=== PATIENT | male | born 1960 | race Caucasian/White ===

== ENCOUNTER 2022-11-28 18:53 | Inpatient (IN) | payer BC, OTHER, SELFPAY ==
[2022-11-28 19:31] LABS: Absolute Lymphocytes (CBC) 0.9 K/uL (0.7-4.9); Hematocrit 47.4 % (39.6-49.0); Lymphocytes % 6.5 % (15.3-44.8); MCV 95.7 fL (80-100); MPV 6.5 fL (7.6-11.3); RBC Red Blood Cell Count 4.95 M/uL (4.33-5.43)
[2022-11-28 19:50] LABS: Specific Gravity 1.014 (1.005-1.030); Urine Bilirubin NEGATIVE (Negative); Urine Blood Negative (Negative); Urine Clarity Clear (Clear); Urine Color Light-Yellow (Yellow); Urine Glucose NEGATIVE (Negative); Urine Protein NEGATIVE (Negative); Urine Urobilinogen Normal (Normal)
[2022-11-28 19:59] LABS: Albumin 3.5 g/dL (3.4-5.0); Bilirubin Direct 0.1 mg/dL (0-0.2); Bilirubin Indirect, Calculated 0.4 mg/dL (0.2-0.8); Bilirubin Total 0.5 mg/dL (0.2-1.0); Magnesium 1.8 mg/dL (1.6-2.4); Potassium 3.7 mEq/L (3.5-5.1); Protein, Total 8.2 g/dL (6.4-8.2); Thyroid Stimulating Hormone 2.99 uIU/mL (0.358-3.740); Troponin High Sensitivity 6.7 pg/mL (<58.9)
--- NOTE | 2022-11-28 21:03 | RAD REPORT ---
EXAM DESCRIPTION: CT - Chest For Pe Angio - 11/28/2022 8:49 pm CLINICAL HISTORY: Chest pain. CHEST PAIN COMPARISON: No comparisons TECHNIQUE: CT angiogram of the pulmonary arteries was performed with MIP. All CT scans are performed using dose optimization technique as appropriate and may include automated exposure control or mA/KV adjustment according to patient size. FINDINGS: No evidence of pulmonary thromboembolism. No acute aortic finding demonstrated. Moderate diffuse COPD. No significant pericardial or pleural fluid. No concerning bony finding. IMPRESSION: No evidence of pulmonary thromboembolism. Moderate diffuse COPD.
--- NOTE | 2022-11-28 21:15 | ER ---
Nurse's Notes [facility] Name: Jed Corona Age: 61 yrs Sex: Male : 1960 Arrival Date: 11/28/2022 Time: 18:53 Bed 4 Private MD: Diagnosis: COPD/ Chronic obstructive pulmonary disease, unspecified;Hypoxemia Presentation: 11/28 18:54 Chief complaint: EMS states: "toned out for breathing difficulty that started today. Pt mb9 states he was diagnosed with an upper respiratory virus on Friday but isn't feeling better. Pt sinus tach at 126 and 90% on RA, placed pt on 3 l/min and O2 saturation now at 94%. Gave Albuterol treatment in route and 20 g to left AC.". Coronavirus screen: Vaccine status: Patient reports being unvaccinated. Ebola Screen: No symptoms or risks identified at this time. Initial Sepsis Screen: Does the patient meet any 2 criteria? HR > 90 bpm. Does the patient have a suspected source of infection? No. Patient's initial sepsis screen is negative. Risk Assessment: Do you want to hurt yourself or someone else? Patient reports no desire to harm self or others. Onset of symptoms was November 28, 2022. 18:54 Method Of Arrival: EMS: [facility] mb9 18:54 Acuity: KAMLESH 3 mb9 Triage Assessment: 18:58 General: Appears uncomfortable, Behavior is cooperative. Pain: Denies pain. Neuro: mb9 Puryd Agitation-Sedation Scale (RASS): 0 - Alert and Calm Level of Consciousness is awake, alert, obeys commands, Oriented to person, place, time, situation, Appropriate for age. Cardiovascular: Heart tones S1 S2 present Patient's skin is warm and dry. Rhythm is sinus tachycardia. Respiratory: Airway is patent Respiratory effort is even, unlabored, Respiratory pattern is regular, symmetrical, Breath sounds with wheezes in left posterior lower lobe, right posterior middle lobe and right posterior lower lobe. Respiratory: Reports shortness of breath at rest on exertion cough that is non-productive. GI: No signs and/or symptoms were reported involving the gastrointestinal system. Derm: Skin is pink, warm \\T\\ dry. Musculoskeletal: Range of motion: intact in all extremities. Historical: - Allergies: 18:54 Novocain; ph - Home Meds: 18:54 losartan-hydrochlorothiazide 100-25 mg oral tablet daily [Active]; omeprazole 40 mg ph Oral capsule,delayed release (e.c.) daily [Active]; amlodipine 10 mg tablet daily [Active]; 18:58 benzonatate 200 mg oral capsule 3 times per day [Active]; ph - PMHx: 18:54 COPD; CHF; Hypertensive disorder; ph - Immunization history:: Adult Immunizations up to date. - Social history:: Smoking status: Patient reports the use of cigarette tobacco products, smokes two packs cigarettes per day. - Family history:: not pertinent. Screenin:57 [facility] ED Fall Risk Assessment (Adult) History of falling in the last 3 months, ph including since admission No falls in past 3 months (0 pts) Confusion or Disorientation No (0 pts) Intoxicated or Sedated No (0 pts) Impaired Gait No (0 pts) Mobility Assist Device Used No (0 pt) Altered Elimination No (0 pt) Score/Fall Risk Level 0 - 2 = Low Risk Oriented to surroundings, Maintained a safe environment, Hourly rounding (assess needs \\T\\ fall precautionary measures) done. Abuse screen: Denies threats or abuse. Denies injuries from another. Nutritional screening: No deficits noted. Tuberculosis screening: No symptoms or risk factors identified. Assessment: 19:21 Reassessment: see triage assessment. mb9 20:07 Reassessment: Patient and/or family updated on plan of care and expected duration. Pain mb9 level reassessed. Patient is alert, oriented x 3, equal unlabored respirations, skin warm/dry/pink. Patient states feeling better. Patient states symptoms have improved. 22:05 Reassessment: attempted to call report to admitting nurse. mb9 Vital Signs: 18:54 BP 150 / 99; Pulse 120; Resp 10; Temp 97.7; Pulse Ox 96% on 3 lpm NC; Weight 72.57 kg; mb9 Height 5 ft. 6 in. ; 19:21 BP 139 / 85; Pulse 112; Resp 18; Pulse Ox 98% on 3 lpm NC; mb9 20:07 BP 130 / 66; Pulse 109; Resp 18; Pulse Ox 98% on R/A; mb9 18:54 Body Mass Index 25.82 (72.57 kg, 167.64 cm) mb9 ED Course: 18:53 Patient arrived in ED. rt 18:53 Jamari Lowe MD is Attending Physician. rt 18:54 Samantha Raygoza, RN is Primary Nurse. mb9 18:54 Arm band placed on. mb9 18:58 Triage completed. mb9 18:59 Placed in gown. Bed in low position. Call light in reach. Side rails up X 1. Client mb9 placed on continuous cardiac and pulse oximetry monitoring. NIBP monitoring applied. hand reamer on. 18:59 No provider procedures requiring assistance completed. Maintain EMS IV. Dressing mb9 intact. Good blood return noted. Site clean \\T\\ dry. Gauge \\T\\ site: 20 g left AC. 19:19 EKG done, by ED staff, reviewed by Jamari Lowe MD. Inserted saline lock: 20 gauge mb9 in right antecubital area, using aseptic technique. 19:19 Blood Culture Adult (2) Sent. mb9 19:19 CMP Sent. mb9 19:19 Protime (+inr) Sent. mb9 19:19 Ptt, Activated Sent. mb9 19:19 Troponin HS Sent. mb9 19:19 Basic Metabolic Panel Sent. mb9 19:19 CBC with Diff Sent. mb9 19:19 LFT's Sent. mb9 19:19 Magnesium Sent. mb9 19:20 NT PRO-BNP Sent. mb9 19:20 TSH Sent. mb9 20:51 CT Chest For PE Angio In Process Unspecified. EDMS 21:13 Daisy Crane MD is Hospitalizing Provider. rt 22:10 Patient admitted, IV remains in place. mb9 Administered Medications: No medications were administered Medication: 18:59 VIS not applicable for this client. mb9 Outcome: 21:14 Decision to Hospitalize by Provider. rt 22:09 Admitted to Tele room 412, with oxygen, with chart, Report called to SAMEER Roman mbRadha 22:09 Condition: stable 22:09 Instructed on the need for admit. 22:31 Patient left the ED. mb9 Signatures: Dispatcher [employer] EDMS Marley Doyle RN RN Samantha Coreas, RN RN Jamari Laura MD MD rt Corrections: (The following items were deleted from the chart) 18:59 18:54 Pulse 120bpm; Resp 10bpm; Pulse Ox 96% 3 lpm Nasal Cannula; Temp 97.7F; 72.57 kg; mb9 Height 5 ft. 6 in.; BMI: 25.8; mb9
--- NOTE | 2022-11-28 21:15 | EDPHYS ---
Physician Documentation [facility] Name: Jed Corona Age: 61 yrs Sex: Male : 1960 Arrival Date: 11/28/2022 Time: 18:53 Bed 4 Private MD: ED Physician Jamari Lowe HPI: 11/28 19:34 This 61 yrs old Unknown Male presents to ER via EMS with complaints of Shortness of rt breath. 19:34 Patient with history of COPD, CHF presents to the ED with about 4 days of cough, rt congestion. He states that he had worsening breathing today. He states that the cough is productive. Patient's oxygen saturation about 90% by EMS, was given 1 nebulizer treatment. Denies chest pain. Denies other acute complaints at this time. Symptoms are moderate severity, no other aggravating or elevating factors.. Historical: - Allergies: 18:54 Novocain; ph - Home Meds: 18:54 losartan-hydrochlorothiazide 100-25 mg oral tablet daily [Active]; omeprazole 40 mg ph Oral capsule,delayed release (e.c.) daily [Active]; amlodipine 10 mg tablet daily [Active]; 18:58 benzonatate 200 mg oral capsule 3 times per day [Active]; ph - PMHx: 18:54 COPD; CHF; Hypertensive disorder; ph - Immunization history:: Adult Immunizations up to date. - Social history:: Smoking status: Patient reports the use of cigarette tobacco products, smokes two packs cigarettes per day. - Family history:: not pertinent. ROS: 19:34 Constitutional: Negative for fever, chills, and weight loss, Cardiovascular: Negative rt for chest pain, palpitations, and edema, Abdomen/GI: Negative for abdominal pain, nausea, vomiting, diarrhea, and constipation, MS/Extremity: Negative for injury and deformity, Skin: Negative for injury, rash, and discoloration, Neuro: Negative for headache, weakness, numbness, tingling, and seizure, Psych: Negative for depression, anxiety, suicide ideation, homicidal ideation, and hallucinations. 19:34 Respiratory: Positive for cough, shortness of breath. Exam: 19:34 Constitutional: This is a well developed, well nourished patient who is awake, alert, rt and in no acute distress. Head/Face: Normocephalic, atraumatic. Chest/axilla: Normal chest wall appearance and motion. Nontender with no deformity. No lesions are appreciated. Cardiovascular: Regular rate and rhythm with a normal S1 and S2. No gallops, murmurs, or rubs. Normal PMI, no JVD. No pulse deficits. Abdomen/GI: Soft, non-tender, with normal bowel sounds. No distension or tympany. No guarding or rebound. No evidence of tenderness throughout. Skin: Warm, dry with normal turgor. Normal color with no rashes, no lesions, and no evidence of cellulitis. MS/ Extremity: Pulses equal, no cyanosis. Neurovascular intact. Full, normal range of motion. Neuro: Awake and alert, GCS 15, oriented to person, place, time, and situation. Cranial nerves II-XII grossly intact. Motor strength 5/5 in all extremities. Sensory grossly intact. Cerebellar exam normal. Normal gait. Psych: Awake, alert, with orientation to person, place and time. Behavior, mood, and affect are within normal limits. 19:34 ECG was reviewed by the Attending Physician. 19:34 Respiratory: Coarse breath sounds with wheezes heard in all lung martinez, no respiratory distress. Vital Signs: 18:54 BP 150 / 99; Pulse 120; Resp 10; Temp 97.7; Pulse Ox 96% on 3 lpm NC; Weight 72.57 kg; mb9 Height 5 ft. 6 in. ; 19:21 BP 139 / 85; Pulse 112; Resp 18; Pulse Ox 98% on 3 lpm NC; mb9 20:07 BP 130 / 66; Pulse 109; Resp 18; Pulse Ox 98% on R/A; mb9 18:54 Body Mass Index 25.82 (72.57 kg, 167.64 cm) mb9 MDM: 18:53 Patient medically screened. rt 21:14 Differential diagnosis: Pneumonia, pneumothorax, COPD, CHF, pulmonary embolism. Data rt reviewed: vital signs, nurses notes, lab test result(s), EKG, radiologic studies. Consideration of Admission/Observation Patient was admitted/placed on observation. Management of patient was discussed with the following: Hospitalist: Agrees to admit. I considered the following discharge prescriptions or medication management in the emergency department Medications were administered in the Emergency Department. See MAR. Independent interpretation of the following test(s) in the Emergency Department CT Scan: My interpretation is No consolidation seen on interpretation of the CT scan images. Test considered but Not performed: X-ray: Patient requires CT angiogram to rule out PE, x-ray not likely to give more useful information.. Care significantly affected by the following chronic conditions: Congestive Heart Failure, Chronic Obstructive Pulmonary Disease. Counseling: I had a detailed discussion with the patient and/or guardian regarding: the historical points, exam findings, and any diagnostic results supporting the discharge/admit diagnosis, lab results, radiology results, the need for further work-up and treatment in the hospital. Response to treatment: the patient's symptoms have markedly improved after treatment. 11/28 19:10 Order name: Basic Metabolic Panel rt 11/28 19:10 Order name: CBC with Diff; Complete Time: 20:33 rt 11/28 19:10 Order name: LFT's; Complete Time: 20:33 rt 11/28 19:10 Order name: Magnesium; Complete Time: 20:33 rt 11/28 19:10 Order name: NT PRO-BNP; Complete Time: 20:33 rt 11/28 19:10 Order name: Troponin HS; Complete Time: 20:33 rt 11/28 19:10 Order name: Blood Culture Adult (2) rt 11/28 19:10 Order name: CMP; Complete Time: 20:33 rt 11/28 19:10 Order name: Lactate w/ 2H reflex if indic.; Complete Time: 20:33 rt 11/28 19:10 Order name: Protime (+inr) rt 11/28 19:10 Order name: Ptt, Activated rt 11/28 19:10 Order name: Urinalysis w/ reflexes; Complete Time: 20:33 rt 11/28 19:10 Order name: TSH; Complete Time: 20:33 rt 11/28 21:30 Order name: Flu rv1 11/28 21:33 Order name: Urinalysis w/ reflexes EDMS 11/28 21:33 Order name: Basic Metabolic Panel EDMS 11/28 21:33 Order name: Basic Metabolic Panel EDMS 11/28 21:33 Order name: Basic Metabolic Panel EDMS 11/28 21:33 Order name: Basic Metabolic Panel EDMS 11/28 21:33 Order name: CBC with Automated Diff EDMS 11/28 21:33 Order name: CBC with Automated Diff EDMS 11/28 21:33 Order name: CBC with Automated Diff EDMS 11/28 21:33 Order name: CBC with Automated Diff EDMS 11/28 21:33 Order name: Magnesium EDMS 11/28 21:33 Order name: Magnesium EDMS 11/28 21:33 Order name: Magnesium EDMS 11/28 21:33 Order name: Magnesium EDMS 11/28 21:33 Order name: Phosphorus EDMS 11/28 21:33 Order name: Phosphorus EDMS 11/28 21:33 Order name: Phosphorus EDMS 11/28 21:33 Order name: Phosphorus EDMS 11/28 19:10 Order name: CT Chest For PE Angio; Complete Time: 21:08 rt 11/28 19:10 Order name: EKG; Complete Time: 19:11 rt 11/28 21:33 Order name: CONS Physician Consult EDMS 11/28 21:33 Order name: Heart Healthy EDMS 11/28 19:10 Order name: Cardiac monitoring; Complete Time: 19:19 rt 11/28 19:10 Order name: EKG - Nurse/Tech; Complete Time: 19:19 rt 11/28 19:10 Order name: IV Saline Lock; Complete Time: 19:19 rt 11/28 19:10 Order name: Labs collected and sent; Complete Time: 19:19 rt 11/28 19:10 Order name: O2 Per Protocol; Complete Time: 19:19 rt 11/28 19:10 Order name: O2 Sat Monitoring; Complete Time: 19:19 rt 11/28 19:10 Order name: Accucheck; Complete Time: 19:19 rt 11/28 19:10 Order name: IV Saline Lock - Large Bore; Complete Time: 19:19 rt 11/28 19:10 Order name: Vital Signs; Complete Time: 19:19 rt EC:34 Rate is 117 beats/min. Rhythm is regular, Sinus tachycardia with Unifocal PVCs. QRS rt Mission is Normal. OK interval is normal. QRS interval is normal. QT interval is normal. No Q waves. T waves are Normal. No ST changes noted. Administered Medications: No medications were administered Disposition Summary: 11/28/22 21:14 Hospitalization Ordered Hospitalization Status: Observation rt Provider: Daisy Crane rt Location: Telemetry/MedSurg (observation) rt Condition: Stable rt Problem: an acute exacerbation rt Symptoms: have improved rt Bed/Room Type: Standard rt Room Assignment: 412(11/28/22 21:54) mw Diagnosis - COPD/ Chronic obstructive pulmonary disease, unspecified rt - Hypoxemia rt Forms: - Medication Reconciliation Form rt - SBAR form rt Signatures: Dispatcher [employer] EDDestinee Lee RN RN Marley Doyle RN RN Jamari Lowe MD MD rt Corrections: (The following items were deleted from the chart) 21:35 21:30 SARS-COV-2 RT PCR+[id number].[id number] ordered. EDMS EDMS 21:54 21:14 rt mw
--- NOTE | 2022-11-28 21:19 | P.HP ---
Certification for Inpatient Patient admitted to: Inpatient With expected LOS: <2 Midnights Patient will require the following post-hospital care: None Practitioner: I am a practitioner with admitting privileges, knowledge of patient current condition, hospital course, and medical plan of care. Services: Services provided to patient in accordance with Admission requirements found in Title 42 Section 412.3 of the Code of Federal Regulations Patient History Date of Service: 11/28/22 Reason for admission: shortness of breath History of Present Illness: 61-year-old male with a past medical history of hypertension, congestive heart failure, COPD, presents to the emergency room with productive cough, worsening shortness of breath today. He reports symptoms started 4 days ago, being treated with a Z-Dung. And nebulizers at home are not effective at this time. On arrival to the emergency room oxygen was 85% on room air, he was placed on nasal cannula at 4 L sats improved to 94%. CT of the chest is negative for PE and pneumonia. ER evaluation Leukocytosis 13.90, mild left shift at 83.5, mild hyponatremia 135, CO2 elevated at 34, blood sugar 121, BNP elevated at 189, UA clear CTA of the chest No evidence of pulmonary thromboembolism. Moderate diffuse COPD. Allergies procaine [From Novocain] Allergy (Verified 11/28/22 21:53) Hives Review of Systems 10-point ROS is otherwise unremarkable Physical Examination - Physical Exam General: Alert, Oriented x3, Mild distress HEENT: Atraumatic, Normocephalic, PERRLA Neck: Supple, 2+ carotid pulse no bruit Respiratory: Diminished Cardiovascular: No edema, Normal pulses, Irregular heart rate/rhythm Capillary refill: <2 Seconds Gastrointestinal: Normal bowel sounds, Non-distended Musculoskeletal: No clubbing, No swelling Integumentary: No rashes, No breakdown Neurological: Normal speech, Normal strength at 5/5 x4 extr, Cranial nerves 3-12 intact - Studies Laboratory Data (last 24 hrs) 11/28/22 19:14: WBC 13.90 H, Hgb 15.7, Hct 47.4, Plt Count 326 11/28/22 19:14: Sodium 135 L, Potassium 3.7, BUN 18, Creatinine 0.74, Glucose 121 H, Magnesium 1.8, Total Bilirubin 0.5, AST 21, ALT 30, Alkaline Phosphatase 82 Assessment and Plan - Plan Assessment plan Acute hypoxic respiratory failure secondary to COPD exacerbation Leukocytosis 13.90, mild left shift at 83.5, mild could be reactive to steroids Hypertensive urgency History of acute on chronic heart failure Tobacco use Alcohol use Assessment plan Acute hypoxic respiratory failure secondary to COPD exacerbation Patient refused albuterol, dexamethasone daily, doxycycline daily, budesonide, ipratropium O2 2 L keep sats greater than 92% Leukocytosis 13.90, mild left shift at 83.5, mild CTA of the chest No evidence of pulmonary thromboembolism. Hypertensive urgency As needed antihypertensives, resume appropriate home meds History of acute on chronic heart failure Resume appropriate home medications, diuretics, trend BMP BNP elevated at 189 Tobacco use Educated on tobacco cessation Alcohol use CIWA protocol, as needed Ativan DVT Lovenox Full code Diet cardiac - Advance Directives Does patient have a Living Will: No Does patient have a Durable POA for Healthcare: No
[2022-11-28] MEDS ORDERED: ONDANSETRON 4 MG/2 ML VIAL IV PRN (21:31)
[2022-11-28] MEDS ORDERED: ALBUTEROL 2.5 MG/3 ML NEB SOL NEB PRN (21:31)
[2022-11-28] MEDS ORDERED: ACETAMINOPHEN 500 MG TAB PO PRN (21:31)
[2022-11-28] MEDS ORDERED: GLUCAGON 1 MG/VIAL IM PRN (21:33)
[2022-11-28] MEDS ORDERED: D50W 25 GM/50 ML SYRINGE IV PRN (21:33)
[2022-11-28] MEDS ORDERED: TRAMADOL HCL 50 MG TAB PO PRN ×2 (21:53→22:34)
[2022-11-28] MEDS ORDERED: LORAZEPAM 0.5 MG TABLET PO ONE (21:53)
[2022-11-28] MEDS ORDERED: LORAZEPAM 0.5 MG TABLET ONE (22:05)
[2022-11-28] MEDS ORDERED: TRAMADOL HCL 50 MG TAB ONE (22:06)
[2022-11-28] MEDS ORDERED: LORazepam 2 MG/ML VIAL IV PRN ×2 (22:31→23:22)
[2022-11-28] MEDS ORDERED: FUROSEMIDE 40 MG/4 ML VIAL IV ONE (22:31)
[2022-11-28] MEDS ORDERED: FLUMAZENIL 0.1 MG/ML (5 mL VIAL) IV PRN (22:31)
[2022-11-28] MEDS ORDERED: LORazepam 2 MG/ML VIAL IV SCH (23:00)
[2022-11-28 23:04] VITALS: BMI 25.7
[2022-11-28 23:41] LABS: Protime INR 0.86
[2022-11-29] MEDS ORDERED: METHYLPREDNISOLONE 125 MG INJ IV SCH
[2022-11-29] MEDS: IPRATROPIUM BROM 0.5MG/2.5ML NEB SCH ×3 (00:15→13:20)
[2022-11-29 05:09] LABS: Absolute Lymphocytes (CBC) 1.2 K/uL (0.7-4.9); Hematocrit 46.9 % (39.6-49.0); Lymphocytes % 6.9 % (15.3-44.8); MCV 96.8 fL (80-100); MPV 6.5 fL (7.6-11.3); RBC Red Blood Cell Count 4.84 M/uL (4.33-5.43)
[2022-11-29 05:23] LABS: Magnesium 1.9 mg/dL (1.6-2.4); Phosphorus 5.4 mg/dL (2.5-4.9); Potassium 3.7 mEq/L (3.5-5.1)
[2022-11-29] MEDS: INSULIN -REGULAR HUMAN 50 UNIT/0.5 ML ML SQ SCH ×2 (07:30→11:30)
[2022-11-29] MEDS ORDERED: BUDESONIDE 0.5 MG/2 ML NEB NEB SCH (08:00)
[2022-11-29] MEDS ORDERED: DOXYCYCLINE 100 MG in NA CHLORIDE 0.9% 100 ML IVPB SCH (09:00)
[2022-11-29] MEDS ORDERED: NICOTINE 21 MG/PAT TD SCH (09:00)
[2022-11-29] MEDS ORDERED: ENOXAPARIN 40 MG/0.4 ML SQ SCH (09:00)
[2022-11-29] MEDS ORDERED: POTASSIUM CL SA 10 MEQ TAB PO ONE (09:00)
[2022-11-29] MEDS ORDERED: dexAMETHasone 4 MG/ML VIAL IV SCH (09:00)
[2022-11-29] MEDS ORDERED: DULERA 200/5 (MOMETASONE/FORMOTEROL) INHALER IH SCH (11:28)
--- NOTE | 2022-11-29 11:38 | P.CNS ---
Date of Consult: 11/29/22 Reason for Consult: OPD exacerbation Chief Complaint: shortness of breath History of Present Illness: Patient is 61 years of age with a history of tobacco alcohol abuse has been sick for about 2 weeks got worse last Friday becoming more short of breath chest congestion productive cough treated with steroids and Z-Dung with no relief as an outpatient. In the hospital he is looking little bit better still congested Allergies procaine [From Novocain] Allergy (Verified 11/28/22 21:53) Hives Home Medications: Amlodipine Besylate [Norvasc] 1 tab PO DAILY 11/29/22 Benzonatate 1 cap PO TID PRN 11/29/22 Losartan/Hydrochlorothiazide [Losartan-Hctz 100-25 mg Tab] 1 tab PO DAILY 11/29/22 Omeprazole [Prilosec] 1 cap PO DAILY 11/29/22 - Past Medical/Surgical History -: COPD -: CHF -: HTN -: hernia repair -: tonsillectomy - Social History Smoking Status: Current every day smoker CD- Drugs: No Place of Residence: Home Review of Systems General: Weakness Respiratory: Cough, Shortness of Breath Physical Examination Temp Pulse Resp BP Pulse Ox 97.1 F 99 H 16 129/72 96 11/29/22 08:00 11/29/22 08:00 11/29/22 08:00 11/29/22 08:00 11/29/22 08:00 General: Alert, In no apparent distress, Oriented x3 Respiratory: Clear to auscultation bilaterally, Diminished Cardiovascular: No edema, Normal pulses, Regular rate/rhythm Gastrointestinal: Normal bowel sounds, Soft and benign, Non-distended Laboratory Data (last 24 hrs) 11/28/22 19:14: WBC 13.90 H, Hgb 15.7, Hct 47.4, Plt Count 326 11/28/22 19:14: Sodium 135 L, Potassium 3.7, BUN 18, Creatinine 0.74, Glucose 121 H, Magnesium 1.8, Total Bilirubin 0.5, AST 21, ALT 30, Alkaline Phosphatase 82 - Problems (1) COPD exacerbation Current Visit: Yes Status: Acute Plan: Patient is 61 years of age admitted with COPD exacerbation heavy smoker history of alcohol abuse is to p.o. prednisone add p.o. levofloxacin check for home O2 counseled on smoking cessation
[2022-11-29] MEDS ORDERED: levoFLOXacin 750 MG TAB PO SCH (11:45)
[2022-11-29] MEDS ORDERED: METHYLPREDNISOLONE 40 MG INJ IV SCH (12:00)
--- NOTE | 2022-11-29 14:16 | RAD REPORT ---
EXAM DESCRIPTION: RAD - Chest Single View - 11/29/2022 2:04 pm CLINICAL HISTORY: COPD COMPARISON: No comparisons FINDINGS: Lines: None. Lungs: No evidence of edema or pneumonia. Pleural: No significant pleural effusions or pneumothorax. Cardiac: The heart size is within normal limits. Mediastinum: Within normal limits. Bones: No acute fractures. Other: None IMPRESSION: No acute cardiopulmonary disease.
--- NOTE | 2022-11-29 16:19 | P.DS ---
Admission Date: 11/28/22 Discharge Date: 11/29/22 Disposition: ROUTINE DISCHARGE Discharge Condition: FAIR Reason for Admission: shortness of breath - Problems (1) Acute respiratory failure with hypoxia Current Visit: Yes Status: Acute (2) Chronic alcohol abuse Current Visit: Yes Status: Acute (3) COPD exacerbation Current Visit: Yes Status: Acute Brief History of Present Illness: 61-year-old male with a past medical history of hypertension, congestive heart failure, COPD, presents to the emergency room with productive cough, worsening shortness of breath today. He reports symptoms started 4 days ago, treated with a Z-P an inhalers at home without much response. On arrival to the emergency room oxygen was 85% on room air, he was placed on nasal cannula at 4 L sats improved to 94%. CT of the chest was negative for PE and pneumonia. ER evaluation Leukocytosis 13.90, mild left shift at 83.5, mild hyponatremia 135, CO2 elevated at 34, blood sugar 121, BNP elevated at 189, UA clear CTA of the chest No evidence of pulmonary thromboembolism. Moderate diffuse COPD. Patient admitted for further management. Hospital Course: Patient was admitted to the medical floor and treated with scheduled bronchodilators, IV steroid and antibiotics. Patient states that he suspects he has an allergy to albuterol. He has tolerated mometasone/formoterol. He was seen in consultation by pulmonary Dr. Mota. Patient was weaned from oxygen to room air which he tolerated even with ambulation. He did not qualify for home oxygen. Patient is deemed stable for discharge. He is discharged with short course prednisone, oral Levaquin and Trelegy. He will follow-up with Dr. Mota as outpatient for further evaluation and treatment. Vital Signs/Physical Exam: Temp Pulse Resp BP Pulse Ox 97.1 F 99 H 16 129/72 96 11/29/22 08:00 11/29/22 08:00 11/29/22 08:00 11/29/22 08:00 11/29/22 08:00 General: Alert, In no apparent distress, Oriented x3 HEENT: Mucous membr. moist/pink Neck: JVD not distended Respiratory: Clear to auscultation bilaterally, Normal air movement Cardiovascular: No edema, Regular rate/rhythm, Normal S1 S2 Gastrointestinal: Normal bowel sounds, Soft and benign, Non-distended Musculoskeletal: No swelling Integumentary: No rashes, No cyanosis Neurological: Normal strength at 5/5 x4 extr Laboratory Data at Discharge: WBC 17.10 thou/uL (4.3-10.9) H 11/29/22 04:40 Hgb 15.6 g/dL (13.6-17.9) 11/29/22 04:40 Hct 46.9 % (39.6-49.0) 11/29/22 04:40 Plt Count 345 thou/uL (152-406) 11/29/22 04:40 PT 10.3 SECONDS (9.2-12.8) 11/28/22 22:52 INR 0.86 11/28/22 22:52 APTT 26.4 SECONDS (21.7-34.4) 11/28/22 22:52 Sodium 135 mEq/L (136-145) L 11/29/22 04:40 Potassium 3.7 mEq/L (3.5-5.1) 11/29/22 04:40 BUN 14 mg/dL (7-18) 11/29/22 04:40 Creatinine 0.67 mg/dL (0.70-1.30) L 11/29/22 04:40 Glucose 122 mg/dL (74-106) H 11/29/22 04:40 Phosphorus 5.4 mg/dL (2.5-4.9) H 11/29/22 04:40 Magnesium 1.9 mg/dL (1.6-2.4) 11/29/22 04:40 Total Bilirubin 0.5 mg/dL (0.2-1.0) 11/28/22 19:14 AST 21 U/L (15-37) 11/28/22 19:14 ALT 30 U/L (16-61) 11/28/22 19:14 Alkaline Phosphatase 82 U/L (45-117) 11/28/22 19:14 Home Medications: Amlodipine Besylate [Norvasc] 1 tab PO DAILY 11/29/22 Benzonatate 1 cap PO TID PRN 11/29/22 Fluticasone/Umeclidin/Vilanter [Trelegy Ellipta 100-62.5-25] 1 each IH DAILY #30 unit 11/29/22 Ipratropium Neb [Atrovent*] 0.5 mg IH QID PRN #120 unit 11/29/22 Losartan/Hydrochlorothiazide [Losartan-Hctz 100-25 mg Tab] 1 tab PO DAILY 11/29/22 Nebulizer 1 each MC QID #1 ea 11/29/22 Omeprazole [Prilosec] 1 cap PO DAILY 11/29/22 levoFLOXacin [Levaquin*] 750 mg PO DAILY #5 tab 11/29/22 predniSONE [Deltasone] 20 mg PO BID #10 tab 11/29/22 New Medications: Ipratropium Neb [Atrovent*] 0.5 mg IH QID PRN #120 unit PRN Reason: Shortness Of Breath levoFLOXacin [Levaquin*] 750 mg PO DAILY #5 tab Nebulizer 1 each MC QID #1 ea predniSONE [Deltasone] 20 mg PO BID #10 tab Fluticasone/Umeclidin/Vilanter [Trelegy Ellipta 100-62.5-25] 1 each IH DAILY #30 unit Diet: AHA Activity: Ad chavez Followup: Roberto Carlos Mota MD [ACTIVE - CAN ADMIT] - 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
[2022-11-29 16:26] VITALS: BP 123/61; TEMP 97.5
[2022-11-29 18:06] VITALS: O2SAT 97
[2022-11-30] MEDS ORDERED: AMLODIPINE 10 MG TAB PO SCH (09:00)
[2022-11-30] MEDS ORDERED: LOSARTAN/HCTZ 50-12.5 PO SCH (09:00)
[2022-11-30] MEDS ORDERED: PANTOPRAZOLE 40MG TABLET PO SCH (09:00)
[2022-11-30] MEDS ORDERED: HOME MED 1 EA UNK (Omeprazole [Prilosec] 40 MG Capsule.Dr) PO SCH (09:00)
[2022-11-30] MEDS ORDERED: HOME MED 1 EA UNK (Losartan/Hydrochlorothiazide [Losartan-Hctz 100-25 Mg Tab] 1 EACH Table PO SCH (09:00)
[2022-11-30] MEDS ORDERED: LORazepam 2 MG/ML VIAL IV SCH (23:00)
--- NOTE | 2022-12-02 11:55 | EKG ---
Test Date: 2022-11-28 Test Time: 18:51:41 [employer] Wildlife Agent: ANDRAE MEASUREMENT RESULTS: Intervals: Rate: 117 MN: 136 QRSD: 82 QT: 324 QTc: 451 Coy: P: 80 MN: 136 QRS: 92 T: 61 INTERPRETIVE STATEMENTS: Sinus tachycardia with frequent premature ventricular complexes Right atrial enlargement Borderline ECG No previous ECG available for comparison Electronically Signed On 12-02-22 11:48:14 CDT by Keenan Watson
== END 2022-11-29 17:48 | disposition home or self-care (01) | DRG 190 ==
LOC: ER 18:53 → 4TH 22:12
PROVIDERS: ADMIT Internal Medicine; ATTEND Internal Medicine
DX: J44.1 Chronic obstructive pulmonary disease with (acute) exacerbation (principal); J96.01 Acute respiratory failure with hypoxia; E87.1 Hypo-osmolality and hyponatremia; I16.0 Hypertensive urgency; I11.0 Hypertensive heart disease with heart failure; I50.9 Heart failure, unspecified; F10.10 Alcohol abuse, uncomplicated; F17.210 Nicotine dependence, cigarettes, uncomplicated; Z71.6 Tobacco abuse counseling; Z88.8 Allergy status to other drugs, medicaments and biological substances; Z79.52 Long term (current) use of systemic steroids; Z79.899 Other long term (current) drug therapy
CPT/HCPCS: 36415; 71045; 71275; 80048; 80053; 80076; 81003; 82947; 83605; 83735; 83880; 84100; 84443; 84484; 85025; 85610; 85730; 87040; 87070; 87205; 93005; 94640; 99285; J1100; J1650; J1940; J2920; J3535; J7626; J7644; Q9967